=== PATIENT | female | born 1990 | race American Indian/Alaskan Native ===

== ENCOUNTER 2017-03-30 10:50 | Emergency (ER) | payer OTHER ==
[2017-03-30 11:14] VITALS: RESP 18; TEMP 98.3; BMI 32.9
[2017-03-30] MEDS ORDERED: Sodium Chloride 0.9% 1,000 ML IV STA ×2 (11:37→13:32)
--- NOTE | 2017-03-30 11:37 | ED PDOC ---
Arrival/HPI - General Historian: Patient - History of Present Illness Time/Duration: Other Quality: Aching Context: Home (See HPI) - General Time Seen by Provider: 03/30/17 11:11 - History of Present Illness Narrative History of Present Illness (Text): 03/30/17 11:37 This 26-year-old female with a denies past medical history presents to the emergency department complaining of right-sided abdominal pain 2 days. Patient also stated she developed a mild headache this morning. Patient denies shortness of breath, chest pain, photophobia, fever, nausea vomiting, diarrhea, dizziness, urinary symptoms, vaginal discharge, bleeding, or abnormal gait (Pilo Infante) Past Medical History - Provider Review Nursing Documentation Reviewed: Yes - Infectious Disease Hx of Infectious Diseases: None - Reproductive Menopause: No - Past Medical History Past Medical History: No Previous - Cardiac Hx Cardiac Disorders: No - Pulmonary Hx Respiratory Disorders: No - Neurological Hx Neurological Disorder: No - HEENT Hx HEENT Disorder: No - Renal Hx Renal Disorder: No - Endocrine/Metabolic Hx Endocrine Disorders: No - Hematological/Oncological Hx Blood Disorders: No - Integumentary Hx Dermatological Disorder: No - Musculoskeletal/Rheumatological Hx Musculoskeletal Disorders: No - Gastrointestinal Hx Gastrointestinal Disorders: No - Genitourinary/Gynecological Hx Genitourinary Disorders: No - Psychiatric Hx Depression: No Hx Emotional Abuse: No Hx Physical Abuse: No Hx Substance Use: No - Surgical History Hx Section: Yes - Anesthesia Hx Anesthesia: No Hx Anesthesia Reactions: No Hx Malignant Hyperthermia: No - Suicidal Assessment Feels Threatened In Home Enviroment: No Family/Social History - Physician Review Nursing Documentation Reviewed: Yes Family/Social History: No Known Family HX Smoking Status: Never Smoked Hx Alcohol Use: No Hx Substance Use: No Allergies/Home Meds Allergies/Adverse Reactions: Allergies No Known Allergies Allergy (Verified 09/14/13 17:59) Review of Systems - Review of Systems Constitutional: Normal. absent: Fatigue, Weight Change, Fevers Eyes: Normal. absent: Vision Changes, Photophobia, Eye Pain ENT: Normal Respiratory: Normal. absent: SOB, Cough Cardiovascular: Normal. absent: Chest Pain, Palpitations, Edema Gastrointestinal: Abdominal Pain. absent: Constipation, Diarrhea, Nausea, Vomiting Genitourinary Female: Normal. absent: Dysuria, Frequency, Hematuria, Vaginal Bleeding, Vaginal Discharge Musculoskeletal: Normal. absent: Back Pain, Neck Pain, Myalgias Skin: Normal. absent: Rash, Pruritis Neurological: Headache. absent: Dizziness, Focal Weakness, Gait Changes, Speech Changes, Facial Droop, Disequilibrium, Seizure Endocrine: Normal Hemo/Lymphatic: Normal Psychiatric: Normal. absent: Depression, Suicidal Ideation Physical Exam Temperature: Afebrile Blood Pressure: Normal Pulse: Regular Respiratory Rate: Normal Appearance: Positive for: Well-Appearing, Non-Toxic, Comfortable Pain Distress: None Mental Status: Positive for: Alert and Oriented X 3 - Systems Exam Head: Present: Atraumatic, Normocephalic Pupils: Present: PERRL Extroacular Muscles: Present: EOMI Conjunctiva: Present: Normal Mouth: Present: Moist Mucous Membranes Pharnyx: Present: Normal. No: ERYTHEMA, EXUDATE, TONSILS ENLARGED Neck: Present: Normal Range of Motion, Trachea Midline. No: Meningeal Signs, MIDLINE TENDERNESS, Paraspinal Tenderness, Lymphadenopathy Respiratory/Chest: Present: Clear to Auscultation, Good Air Exchange. No: Respiratory Distress, Accessory Muscle Use, Wheezes, Retracting, Rhonchi, Tachypneic Cardiovascular: Present: Regular Rate and Rhythm, Normal S1, S2. No: Murmurs Abdomen: Present: Tenderness (Mild right-sided abdominal tenderness.), Normal Bowel Sounds. No: Distention, Peritoneal Signs, Rebound, Guarding, McBurney's Point Tender, Rovsing's Sign Present, Hernias, Scars Genitourinary/Pelvic Exam: Present: Other (Deferred by patient) Back: Present: Normal Inspection. No: CVA Tenderness Upper Extremity: Present: Normal Inspection, Normal ROM, NORMAL PULSES, Neurovascularly Intact, Capillary Refill < 2s. No: Cyanosis, Edema Lower Extremity: Present: Normal Inspection, NORMAL PULSES, Normal ROM, Neurovascularly Intact, Capillary Refill < 2 s. No: Edema Neurological: Present: GCS=15, CN II-XII Intact, Speech Normal, Motor Func Grossly Intact, Normal Sensory Function, Normal Cerebellar Funct, Gait Normal Skin: Present: Warm, Dry, Normal Color. No: Rashes Psychiatric: Present: Alert, Oriented x 3, Normal Insight, Normal Concentration Vital Signs Temp Pulse Resp BP Pulse Ox 03/30/17 15:55 60 18 117/79 97 03/30/17 12:27 58 L 18 117/72 100 10/21/17 11:06 98.3 F 76 18 111/80 99 Medical Decision Making Re-evaluation Time: 16:37 Reassessment Condition: Re-examined, Improved - Lab Interpretations I have reviewed the lab results: Yes Interpretation: No clinic. lab abnormalty (mild anemia) - RAD Interpretation Airline Reservationist: ED Physician - EKG Interpretation Interpreted by ED Physician: Yes ED Course and Treatment: 03/30/17 15:30 Patient appears in no acute distress. Patient has been texting by using her cell phone. She appears on her normal state of life 03/30/17 16:45 Re-evaluation. Patient feels better. Discussed results and plan with patient who expresses understanding. All questions answered and there is agreement with the plan to discharge home with instructions. Patient stable for discharge. Return if symptoms persist or worsen Patient was recommended to return to emergency if symptoms worsen. (Pilo Infante ) - Lab Interpretations Microbiology Results: Microbiology Results 03/30/17 15:30 Urine Urine Culture - Final No Growth (<1,000 CFU/ML) Lab Results: 03/30/17 12:10 03/30/17 12:10 Lab Results 03/30/17 15:30: Urine Opiates Screen Negative, Urine Methadone Screen Negative, Ur Barbiturates Screen Negative, Ur Phencyclidine Scrn Negative, Ur Amphetamines Screen Negative, U Benzodiazepines Scrn Negative, U Oth Cocaine Metabols Negative, U Cannabinoids Screen Negative 03/30/17 15:30: Urine Color Yellow, Urine Appearance Clear, Urine pH 6.0, Ur Specific Cost 1.020, Urine Protein Negative, Urine Glucose (UA) Negative, Urine Ketones 15 H, Urine Blood Negative, Urine Nitrate Negative, Urine Bilirubin Negative, Urine Urobilinogen 0.2, Ur Leukocyte Esterase Negative, Urine HCG, Qual Negative 03/30/17 12:10: Beta HCG, Quant < 2.39 03/30/17 12:10: Sodium 139, Potassium 4.1, Chloride 105, Carbon Dioxide 27, Anion Gap 11, BUN 14, Creatinine 1.1, Est GFR ( Amer) > 60, Est GFR (Non- Af Amer) 59, Random Glucose 97, Calcium 9.4, Total Bilirubin 0.4, AST 28, ALT 37 , Alkaline Phosphatase 71, Total Protein 6.8, Albumin 3.9, Globulin 2.9, Albumin /Globulin Ratio 1.3, Lipase 39 03/30/17 12:10: PT 12.9 H, INR 1.17 H, APTT 31.8 03/30/17 12:10: WBC 5.1, RBC 3.82, Hgb 10.8 L, Hct 33.5 L, MCV 87.7, MCH 28.3, MCHC 32.2, RDW 12.4, Plt Count 259, MPV 10.6, Gran % 43.9 L, Lymph % (Auto) 45.2 H, Stafford % (Auto) 8.0 H, Eos % (Auto) 2.7, Baso % (Auto) 0.2, Gran # 2.25, Lymph # 2.3, Stafford # 0.4, Eos # 0.1, Baso # 0.01 - RAD Interpretation Narrative RAD Interpretations (Text): 1 03/30/17 16:02 Accession No. : [id number] Patient Name / ID : ED MIN / [id number] Exam Date : 03/30/2017 14:55:15 ( Approved ) Study Comment : Sex / Age : F / 26Y Creator : Kaz Jones MD Dictator : Kaz Jones MD Making Machine Operator : Reservations Agent : Kaz Jones MD Approver2 : Report Date : 03/30/2017 15:18:51 My Comment : PROCEDURE: CT HEAD WITHOUT CONTRAST. HISTORY: SHIELDS COMPARISON: None available. TECHNIQUE: Axial computed tomography images were obtained through the head/brain without intravenous contrast. Radiation dose: Total exam DLP = 775 mGy-cm. This CT exam was performed using one or more of the following dose reduction techniques: Automated exposure control, adjustment of the mA and/or kV according to patient size, and/or use of iterative reconstruction technique. FINDINGS: HEMORRHAGE: No intracranial hemorrhage. BRAIN: No mass effect or edema. No atrophy or chronic microvascular ischemic changes. VENTRICLES: Unremarkable. No hydrocephalus. CALVARIUM: Unremarkable. PARANASAL SINUSES: Unremarkable as visualized. No significant inflammatory changes. MASTOID AIR CELLS: Unremarkable as visualized. No inflammatory changes. OTHER FINDINGS: None. IMPRESSION: No acute findings 03/30/17 16:37 Accession No. : [id number] Patient Name / ID : ED MIN / [id number] Exam Date : 03/30/2017 15:00:18 ( Approved ) Study Comment : Sex / Age : F / 26Y Creator : Kaz Jones MD Dictator : Kaz Jones MD Making Machine Operator : Reservations Agent : Kaz Jones MD Approver2 : Report Date : 03/30/2017 16:15:42 My Comment : PROCEDURE: CT Abdomen and Pelvis with contrast HISTORY: right dised abdominal pain COMPARISON: None. TECHNIQUE: Contrast dose: 100 cc of Omni 300 Radiation dose: Total exam DLP = 1252 mGy-cm. This CT exam was performed using one or more of the following dose reduction techniques: Automated exposure control, adjustment of the mA and/or kV according to patient size, and/or use of iterative reconstruction technique. FINDINGS: LOWER THORAX: Unremarkable. LIVER: Unremarkable. No gross lesion or ductal dilatation. GALLBLADDER AND BILE DUCTS: Unremarkable. PANCREAS: Unremarkable. No gross lesion or ductal dilatation. SPLEEN: Unremarkable. ADRENALS: Unremarkable. No mass. KIDNEYS AND URETERS: Unremarkable. No hydronephrosis. No solid mass. VASCULATURE: Unremarkable. No aortic aneurysm. BOWEL: Unremarkable. No obstruction. No gross mural thickening. APPENDIX: Normal appendix. PERITONEUM: There is a small amount of free fluid LYMPH NODES: Unremarkable. No enlarged lymph nodes. BLADDER: Unremarkable. REPRODUCTIVE: Bilateral ovarian cysts are seen. There is fluid in the endometrial canal. BONES: No acute fracture. OTHER FINDINGS: None. IMPRESSION: Bilateral ovarian cysts. Small amount of fluid in the cul-de-sac most likely from recent cyst rupture. No evidence of appendicitis (Pilo Infante P) Radiology Orders: 03/30/17 11:39 ABDOMEN & PELVIS [ABD & PELVIS IV CONTRAST ONLY] [CT] Stat 03/30/17 11:46 HEAD W/O CONTRAST [CT] Stat - Medication Orders Current Medication Orders: Discontinued Medications Famotidine (Pepcid) 20 mg IVP STAT STA Stop: 03/30/17 11:38 Last Admin: 03/30/17 13:01 Dose: 20 mg IVP Administration Document 03/30/17 13:01 GMD (Rec: 03/30/17 13:01 GMD [id number]) Charges for Administration # of IVP Administrations 1 Sodium Chloride (Sodium Chloride 0.9%) 1,000 mls @ 1,000 mls/hr IV .Q1H STA Stop: 03/30/17 12:36 Last Admin: 03/30/17 12:02 Dose: 1,000 mls/hr eMAR Start Stop Document 03/30/17 12:02 GMD (Rec: 03/30/17 12:02 GMD [id number]) Intravenous Solution Start Date 03/30/17 Start Time 12:02 End Date 03/30/17 End time 13:02 Total Infusion Time 60 Sodium Chloride (Sodium Chloride 0.9%) 1,000 mls @ 999 mls/hr IV .Q1H1M STA Stop: 03/30/17 14:32 Last Admin: 03/30/17 15:17 Dose: 999 mls/hr eMAR Start Stop Document 03/30/17 15:17 GMD (Rec: 03/30/17 15:17 GMD [id number]) Intravenous Solution Start Date 03/30/17 Start Time 15:17 End Date 03/30/17 End time 16:18 Total Infusion Time 61 Ketorolac Tromethamine (Toradol) 15 mg IVP STAT STA Stop: 03/30/17 11:38 Last Admin: 03/30/17 13:01 Dose: 15 mg MAR Pain Assessment Document 03/30/17 13:01 GMD (Rec: 03/30/17 13:01 GMD [id number]) Pain Reassessment Is this a pain reassessment? No Sleep Is patient sleeping during reassessment? No Presence of Pain Presence of Pain Yes IVP Administration Document 03/30/17 13:01 GMD (Rec: 03/30/17 13:01 GMD [id number]) Charges for Administration # of IVP Administrations 1 Ondansetron HCl (Zofran Inj) 4 mg IVP STAT STA Stop: 03/30/17 11:38 Last Admin: 03/30/17 13:01 Dose: 4 mg IVP Administration Document 03/30/17 13:01 GMD (Rec: 03/30/17 13:01 GMD [id number]) Charges for Administration # of IVP Administrations 1 Disposition/Present on Arrival - Present on Arrival Any Indicators Present on Arrival: No History of DVT/PE: No History of Uncontrolled Diabetes: No Urinary Catheter: No History of Decub. Ulcer: No History Surgical Site Infection Following: None - Disposition Have Diagnosis and Disposition been Completed?: Yes Disposition Time: 16:47 Patient Plan: Discharge - Disposition Diagnosis: Nonspecific abdominal pain Disposition: HOME/ ROUTINE Condition: GOOD Discharge Instructions (ExitCare): Acute Abdominal Pain (ED) Additional Instructions: Call private doctor for follow up visit in 1-2 days. Take medication as instructed. Return to emergency if symptoms worsen. Prescriptions: Famotidine [Pepcid] 40 mg PO DAILY #10 tablet Referrals: PCP,NO [Primary Care Provider] - Follow up with primary [facility] [Outside] - Follow up with primary [facility] [Outside] - Follow up with primary Forms: [employer] (Azeri)
[2017-03-30 12:26] LABS: BASO # 0.01 K/mm3 (0.0-2.0); BASO % 0.2 % (0.0-3.0); EOS # 0.1 (0.0-0.7); EOS % 2.7 % (1.5-5.0); GRAN # 2.25 (1.4-6.5); GRAN % 43.9 % (50.0-68.0); HEMATOCRIT 33.5 % (36.0-48.0); LYMPH # 2.3 (1.2-3.4); LYMPH % 45.2 % (22.0-35.0); MEAN CELL VOLUME 87.7 fl (80.0-105.0); MEAN CORPUSCULAR HEMOGLOBIN 28.3 pg (25.0-35.0); MEAN CORPUSCULAR HGB CONC 32.2 g/dl (31.0-37.0); MEAN PLATELET VOLUME 10.6 fl (7.0-11.0); MONO # 0.4 (0.1-0.6); RED CELL DISTRIBUTION WIDTH 12.4 % (11.5-14.5); WHITE BLOOD COUNT 5.1 10^3/ul (4.5-11.0)
[2017-03-30 12:38] LABS: INR 1.17 (0.93-1.08); PARTIAL THROMBOPLASTIN TIME 31.8 Seconds (25.1-36.5)
[2017-03-30 12:40] LABS: ALB/GLOB RATIO 1.3 (1.1-1.8); ALKALINE PHOSPHATASE 71 U/L (38-126); ALT/SGPT 37 U/L (7-56); AST/SGOT 28 U/L (14-36); BILIRUBIN,TOTAL 0.4 mg/dL (0.2-1.3); BLOOD UREA NITROGEN 14 mg/dL (7-21); CALCIUM 9.4 mg/dL (8.4-10.5); CARBON DIOXIDE 27 mmol/L (21-33); CHLORIDE 105 mmol/L (98-107); GFR AFRICAN-AMERICAN > 60; GLUCOSE,RANDOM 97 mg/dL (70-110); LIPASE 39 U/L (23-300); POTASSIUM 4.1 mmol/L (3.6-5.0); SODIUM 139 mmol/L (132-148); TOTAL PROTEIN 6.8 g/dL (5.8-8.3)
[2017-03-30] MEDS ORDERED: Iohexol 350 MG/100 ML VIAL ONE (13:45)
--- NOTE | 2017-03-30 15:20 | CT ---
PROCEDURE: CT HEAD WITHOUT CONTRAST. HISTORY: SHIELDS COMPARISON: None available. TECHNIQUE: Axial computed tomography images were obtained through the head/brain without intravenous contrast. Radiation dose: Total exam DLP = 775 mGy-cm. This CT exam was performed using one or more of the following dose reduction techniques: Automated exposure control, adjustment of the mA and/or kV according to patient size, and/or use of iterative reconstruction technique. FINDINGS: HEMORRHAGE: No intracranial hemorrhage. BRAIN: No mass effect or edema. No atrophy or chronic microvascular ischemic changes. VENTRICLES: Unremarkable. No hydrocephalus. CALVARIUM: Unremarkable. PARANASAL SINUSES: Unremarkable as visualized. No significant inflammatory changes. MASTOID AIR CELLS: Unremarkable as visualized. No inflammatory changes. OTHER FINDINGS: None. IMPRESSION: No acute findings
[2017-03-30 15:42] LABS: URINE BILIRUBIN NEGATIVE (NEGATIVE); URINE BLOOD NEGATIVE (NEGATIVE); URINE GLUCOSE (UA) NEGATIVE (NEGATIVE); URINE KETONE 15 mg/dL (NEGATIVE); URINE LEUKOCYTE ESTERASE NEGATIVE Leu/uL (NEGATIVE); URINE PROTEIN NEGATIVE mg/dL (<30 mg/dL); URINE UROBILINOGEN 0.2 E.U./dL (<1 E.U./dL)
[2017-03-30 15:44] LABS: URINE APPEARANCE CLEAR (CLEAR); URINE COLOR YELLOW (YELLOW)
[2017-03-30 15:55] VITALS: BP 117/79; PULSE 60; O2SAT 97
--- NOTE | 2017-03-30 16:17 | CT ---
PROCEDURE: CT Abdomen and Pelvis with contrast HISTORY: right dised abdominal pain COMPARISON: None. TECHNIQUE: Contrast dose: 100 cc of Omni 300 Radiation dose: Total exam DLP = 1252 mGy-cm. This CT exam was performed using one or more of the following dose reduction techniques: Automated exposure control, adjustment of the mA and/or kV according to patient size, and/or use of iterative reconstruction technique. FINDINGS: LOWER THORAX: Unremarkable. LIVER: Unremarkable. No gross lesion or ductal dilatation. GALLBLADDER AND BILE DUCTS: Unremarkable. PANCREAS: Unremarkable. No gross lesion or ductal dilatation. SPLEEN: Unremarkable. ADRENALS: Unremarkable. No mass. KIDNEYS AND URETERS: Unremarkable. No hydronephrosis. No solid mass. VASCULATURE: Unremarkable. No aortic aneurysm. BOWEL: Unremarkable. No obstruction. No gross mural thickening. APPENDIX: Normal appendix. PERITONEUM: There is a small amount of free fluid LYMPH NODES: Unremarkable. No enlarged lymph nodes. BLADDER: Unremarkable. REPRODUCTIVE: Bilateral ovarian cysts are seen. There is fluid in the endometrial canal. BONES: No acute fracture. OTHER FINDINGS: None. IMPRESSION: Bilateral ovarian cysts. Small amount of fluid in the cul-de-sac most likely from recent cyst rupture. No evidence of appendicitis
== END 2017-03-30 16:51 | disposition home or self-care (01) ==
LOC: ED 10:50
DX: R10.9 Unspecified abdominal pain (principal)
CPT/HCPCS: 70450; 74177; 80053; 80324; 80345; 80346; 80349; 80353; 80358; 80361; 81003; 83690; 83992; 84702; 84703; 85025; 85610; 85730; 87086; 96361; 96374; 96375; 99285; J1885; J2405; J7040; Q9967